=== PATIENT | female | born 1980 | race Caucasian/White ===

== ENCOUNTER 2020-04-30 07:56 | Emergency (ER) | payer OTHER ==
[~2020-04-30] VITALS: Ht 172.7 cm; Wt 68.0 kg
[2020-04-30] MEDS ORDERED: PROAIR HFA8.5 GM INH (08:11)
[2020-04-30] MEDS ORDERED: ZYRTEC10 M5 PO (08:11)
[2020-04-30 08:34] LABS: ABSOLUTE EOSINOPHILS 0.1 thou/uL (0.0-0.7); ABSOLUTE LYMPHOCYTES 1.1 thou/uL (0.8-5.3); ABSOLUTE MONOCYTES 0.6 thou/uL (0.0-1.2); ABSOLUTE NEUTROPHILS 2.7 thou/uL (1.6-8.1); BASOPHILS 0.7 %; EOSINOPHILS 1.7 %; HEMATOCRIT 39.1 % (37.0-47.0); HEMOGLOBIN 13.7 gm/dL (12.0-15.0); MCH 31.3 pg (26.0-34.0); MCHC 34.9 g/dL (28.0-37.0); MCV 89.6 fL (80.0-100.0); MONOCYTES 13.5 %; NUCLEATED RBCS 0 /100WBC; PLATELET COUNT* 180 thou/uL (150-400); POLYS 59.1 %; RBC 4.37 mil/uL (4.20-5.00); RDW-CV 13.3 % (10.5-14.5); URINE BLOOD 1+ (Negative); URINE CLARITY CLEAR; URINE COLOR YELLOW; URINE GLUCOSE-RANDOM NEGATIVE (Negative); URINE KETONES TRACE (Negative); URINE LEUKOCYTES-REFLEX 1+ (Negative); URINE NITRITE-REFLEX NEGATIVE (Negative); URINE PROTEIN TRACE (Negative); URINE SPECIFIC GRAVITY >= 1.030 (1.005-1.030); WBC 4.5 thou/uL (4.0-11.0)
[2020-04-30 08:37] LABS: ICTOTEST (BILI CONFIRMATORY) Negative (Negative); URINE BILIRUBIN 1+ (Negative)
[2020-04-30 08:40] LABS: CALCIUM 8.6 mg/dL (8.5-10.1); CREATININE 0.8 mg/dL (0.6-1.3); POTASSIUM 3.5 mmol/L (3.5-5.1)
[2020-04-30 08:44] LABS: SQUAMOUS >10 Many /LPF (0-3)
[2020-04-30 08:45] LABS: BACTERIA-REFLEX >30 Many /HPF (None Seen); TOTAL BILIRUBIN 0.5 mg/dL (<0.1-1.0); TOTAL PROTEIN 7.7 g/dL (6.4-8.2); URINE RBC 3-10 Few /HPF (0-2); URINE WBC-REFLEX 6-15 Few /HPF (0-5)
[2020-04-30 08:46] LABS: CASTS None Seen /LPF (None Seen); CRYSTALS None Seen /LPF (None Seen); MUCUS 4-6 Moderate strn/LPF (None Seen)
[2020-04-30] MEDS ORDERED: AUGMENTIN 875-1 EACH PO (09:57)
[2020-04-30 10:06] VITALS: BP 99/61
== END 2020-04-30 10:07 | disposition home or self-care (01) ==
LOC: M.ERS 07:56
PROVIDERS: Emergency Medicine Emergency Medical Services
DX: N39.0 Urinary tract infection, site not specified (principal); B34.9 Viral infection, unspecified; Z20.828 Contact with and (suspected) exposure to other viral communicable diseases; J45.909 Unspecified asthma, uncomplicated; K21.9 Gastro-esophageal reflux disease without esophagitis; Z98.51 Tubal ligation status